=== PATIENT | male | born 1960 | race Caucasian/White ===

== ENCOUNTER 2016-04-19 07:04 | Emergency (ER) | payer BC ==
[2016-04-19 07:15] VITALS: BP 146/89
--- NOTE | 2016-04-19 07:27 | UC ---
Throat Pain/Nasal Nick HPI - HPI Summary HPI Summary: c/o sore throat and tongue since Thursday, worsened yesterday. States nasal congestion started Thursday. Is traveling to [place] and had a spleenectomy. He had a white coating to his tongue in the past couple days. No fever, does not feel like strep . [ End ] - History of Current Complaint Chief Complaint: UCRespiratory Stated Complaint: SORE THROAT,COUGH Time Seen by Provider: 04/19/16 07:16 Hx Obtained From: Patient Onset/Duration: Gradual Onset Cough: Nonproductive - Epiglottits Risk Factors Epiglottis Risk Factors: Negative - Allergies/Home Medications Allergies/Adverse Reactions: Allergies Allergy/AdvReac Type Severity Reaction Status Date / Time Penicillins Allergy Unknown Verified 04/19/16 07:08 Reaction Details Home Medications: Home Medications Ibuprofen [Advil] 600 mg PO Q6H PRN 04/19/16 [History Confirmed 04/19/16] PMH/Surg Hx/FS Hx/Imm Hx Previously Healthy: Yes Endocrine History Of: Denies: Diabetes Cardiovascular History Of: Denies: Cardiac Disorders GI/ History Of: Denies: Gastroesophageal Reflux Psychological History Of: Denies: Anxiety Cancer History Of: Denies: Lung Cancer Other History Of: Negative For: HIV - Surgical History Surgical History: Yes Surgery Procedure, Year, and Place: speenectomy. R ankle 83. R clavicle- 86. 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 Lives: With Family Alcohol Use: Occasionally Substance Use Type: None Smoking Status (MU): Never Smoked Tobacco Have You Smoked in the Last Year: No - Immunization History Most Recent Influenza Vaccination: never Review of Systems Constitutional: Fatigue Skin: Negative Eyes: Negative ENT: Sore Throat, Other - sore tongue Respiratory: Negative Cardiovascular: Negative Gastrointestinal: Negative Genitourinary: Negative Motor: Negative Neurovascular: Negative Musculoskeletal: Negative Neurological: Negative Psychological: Negative All Other Systems Reviewed And Are Negative: Yes Physical Exam Triage Information Reviewed: Yes Appearance: Well-Appearing, No Pain Distress, Well-Nourished Vital Signs: Initial Vital Signs Temp 98.3 F 04/19/16 07:09 Pulse 77 04/19/16 07:09 Resp 18 04/19/16 07:09 BP 146/89 04/19/16 07:09 Pulse Ox 100 04/19/16 07:09 Vital Signs Reviewed: Yes Eye Exam: Normal ENT Exam: Normal ENT: Positive: TMs normal, Other: - white patches on the tongue. oropharynx without exudate or petechiae. Negative: Pharyngeal erythema, Nasal congestion, Nasal drainage, Tonsillar swelling, Tonsillar exudate, Trismus, Muffled/hoarse voice Dental Exam: Normal Neck exam: Normal Neck: Positive: 1 Respiratory Exam: Normal Cardiovascular Exam: Normal Abdominal Exam: Normal Musculoskeletal Exam: Normal Neurological Exam: Normal Psychological Exam: Normal Skin Exam: Normal Throat Pain/Nasal Course/Dx - Course Course Of Treatment: Centor score of 1 (sore thrat) but otherwise negative. He does not feel this is strep since he has had it before and declined strep testing. 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 denies easy bruising. he had virus last week which likely contributed to suppressed immune system. He is aware to f/u with PCP next week when he returns from [facility] - Differential Dx/Diagnosis Differential Diagnosis/HQI/PQRI: Tonsillitis, URI, Other - thrush Provider Diagnoses: Thrush Discharge - Discharge Plan Condition: Good Disposition: HOME Prescriptions: Nystatin SUSPENSION ORAL SYR* 100,000 units PO QID #1 bottle Patient Education Materials: Oral Candidiasis (ED) Additional Instructions: Please follow up with your primary care physician in 3-5 days if your symptoms are not improving. Good luck on your job interview.
== END 2016-04-19 07:34 | disposition home or self-care (01) ==
LOC: UCCORT 07:04
DX: B37.0 Candidal stomatitis (principal); Z88.0 Allergy status to penicillin
CPT/HCPCS: 99202; G0463